=== PATIENT | female | born 1995 | race Caucasian/White ===

== ENCOUNTER 2016-08-19 23:06 | Emergency (ER) | payer OTHER ==
[2016-08-19 23:20] VITALS: BP 122/76; PULSE 88; TEMP 97.6; BMI 36.1
--- NOTE | 2016-08-19 23:34 | PDOC ---
History of Present Illness - General History Source: Patient Exam Limitations: No Limitations - History of Present Illness Initial Comments: 08/20/16 00:09 The patient is a 20 year old female with significant past medical history of asthma and eczema who presents to the ED with several weeks of nonradiating chest/rib cage pain. She states her pain has been intermittent within the past several weeks with no exacerbating or alleviating factors. Denies lightheadedness, diaphoresis, SOB, jaw pain, shoulder pain, arm pain, leg swelling, nausea, or vomiting. She denies trauma to the area, sick contacts, or recent travels. States she has been evaluated recently for her symptoms , where she has been treated with no resolution. The patient denies fever, chills, cough, abdominal pain, and diarrhea. Allergies: amoxicillin Social History: No alcohol, tobacco, or drug use reported. Past Surgical History: None reported PCP: Dr. Carlene Messina <Ev Silva - Last Filed: 08/20/16 00:59> - General History Source: Patient <Earle Russell - Last Filed: 08/20/16 01:03> - General Chief Complaint: Pain Stated Complaint: PAIN Time Seen by Provider: 08/19/16 23:33 Past History <Ev Silva - Last Filed: 08/20/16 00:59> - Past Medical History Asthma: Yes - Immunization History Immunization Up to Date: Yes - Psycho/Social/Smoking Cessation Hx Anxiety: No Suicidal Ideation: No Smoking History: Never smoked Have you smoked in the past 12 months: No Number of Cigarettes Smoked Daily: 0 Cigars Per Day: 0 Information on smoking cessation initiated: No Hx Alcohol Use: No Drug/Substance Use Hx: No Substance Use Type: None <Earle Russell - Last Filed: 08/20/16 01:03> - Past Medical History Allergies/Adverse Reactions: Allergies Allergy/AdvReac Type Severity Reaction Status Date / Time peanut Allergy Severe Verified 08/19/16 23:20 amoxicillin Allergy Verified 08/19/16 23:20 Home Medications: Ambulatory Orders Salmeterol/Fluticasone [Advair 100Mcg/50Mcg -] 1 inh PO BID 12/14/14 Ondansetron [Zofran Odt -] 4 mg SL TID PRN #21 od.tablet 05/19/16 Review of Systems - Review of Systems Able to Perform ROS?: Yes Comments:: 08/20/16 00:09 CONSTITUTIONAL: Absent: fever, no chills, no fatigue EYES: Absent: visual changes ENT: Absent: ear pain, no sore throat CARDIOVASCULAR: +chest/rib cage pain Absent: no palpitations RESPIRATORY: Absent: cough, no SOB GI: Absent: abdominal pain, no nausea, no vomiting, no constipation, no diarrhea GENITOURINARY: Absent: dysuria, no frequency, no hematuria MUSCULOSKELETAL: Absent: back pain SKIN: Absent: rash NEURO: Absent: headache <Ev Silva - Last Filed: 08/20/16 00:59> *Physical Exam - Vital Signs Last Vital Signs Temp Pulse Resp BP Pulse Ox 97.6 F 88 20 122/76 99 08/19/16 23:18 08/19/16 23:18 08/19/16 23:18 08/19/16 23:18 08/19/16 23:18 - Physical Exam Comments: 08/20/16 00:09 GENERAL: Well-appearing, well-nourished. No apparent distress. HEENT: Normocephalic, atraumatic. PERRL, EOM intact. CARDIOVASCULAR: Normal S1, S2. Regular rate and rhythm. PULMONARY: Clear to auscultation bilaterally. ABDOMEN: Obese. Soft, non-distended, non-tender. EXTREMITIES: Normal ROM in all four extremities. No gross deformities. SKIN: Warm, dry. Large pendulous breast, stretch choi underneath each breast, skin under both breast is tender, thin and non-erythematous NEUROLOGICAL: No focal neurological deficits. <Ev Silva - Last Filed: 08/20/16 00:59> - Vital Signs Last Vital Signs Temp Pulse Resp BP Pulse Ox 97.6 F 88 20 122/76 99 08/19/16 23:18 08/19/16 23:18 08/19/16 23:18 08/19/16 23:18 08/19/16 23:18 <Earle Russell - Last Filed: 08/20/16 01:03> ED Treatment Course - RADIOLOGY Radiograph Interpretation: 08/20/16 00:59 Exam: Noncontrast CT chest Reviewed by Imaging internal controls consultant: Findings: No pulmonary infiltrates, nodules or masses are seen. There is no axillary, mediastinal or hilar adenopathy. The heart is within limits for size. There is no pericardial or pleural effusion. The trachea and central bronchi are patent. The thoracic aorta and proximal great vessels have a normal appearance. The visualized upper abdominal viscera appear unremarkable. Impression: No pulmonary infiltrates nodules or masses seen. No other acute abnormality seen in the chest or visualized upper abdomen. <Ev Silva - Last Filed: 08/20/16 00:59> Medical Decision Making - Medical Decision Making 08/20/16 01:02 Dr. Russell: The scribe's documentation has been prepared under my direction and personally reviewed by me in its entirery. I confirm that the note above accurately reflects all work, treatment, procedures, and medical decision making performed by me. Chest ct scan was negative for any thoracic pathology. Pt will be discharged and follow up with her pcp. <Earle Russell - Last Filed: 08/20/16 01:03> *DC/Admit/Observation/Transfer - Attestations Scribe Attestion: 08/20/16 00:10 Documentation prepared by Ev Silva, acting as medical associate for Earle Russell MD <Ev Silva - Last Filed: 08/20/16 00:59> - Discharge Dispostion Admit: No <Earle Rsusell - Last Filed: 08/20/16 01:03> Diagnosis at time of Disposition: Chest pain, muscular - Discharge Dispostion Disposition: HOME Condition at time of disposition: Stable - Referrals Referrals: Carlene Messina MD [Primary Care Provider] - - Patient Instructions Printed Discharge Instructions: DI for Atypical Chest Pain
== END 2016-08-20 01:08 | disposition home or self-care (01) ==
LOC: JER 23:06
DX: R07.89 Other chest pain (principal)
CPT/HCPCS: 71250-TC; 84703; 99281-25

== ENCOUNTER 2017-03-25 18:57 | Emergency (ER) | payer OTHER ==
[2017-03-25 19:21] VITALS: BMI 37.5
--- NOTE | 2017-03-25 19:37 | PDOC ---
History of Present Illness - General Chief Complaint: Chest Pain Stated Complaint: CHEST PAIN Time Seen by Provider: 03/25/17 19:32 - History of Present Illness Initial Comments: 03/25/17 21:26 The patient is a 21 year old female with a history of asthma who presents for evaluation of chest pain. The patient reports a 3 day history of intermittent sharp non-radiating chest pain, worse with movement prompting her presentation to the ED today. She states she has never experience pain like this in the past. She denies any SOB, recent long travel, leg swelling, fevers, chills, cough, abdominal pain, or changes with urination or bowel movements. Past History - Past Medical History Allergies/Adverse Reactions: Allergies Allergy/AdvReac Type Severity Reaction Status Date / Time peanut Allergy Severe Verified 03/25/17 19:38 amoxicillin Allergy Verified 03/25/17 19:38 Home Medications: Ambulatory Orders Albuterol Sulfate Inhaler - [Ventolin HFA Inhaler -] 1 - 2 inh PO Q4H PRN #1 inhaler 03/25/17 Fluticasone/Salmeterol [Advair 250-50 Diskus] 1 each IH DAILY 03/25/17 Ibuprofen 800 mg PO Q6H 03/25/17 Asthma: Yes - Immunization History Immunization Up to Date: Yes - Suicide/Smoking/Psychosocial Hx Smoking History: Never smoked Have you smoked in the past 12 months: No Number of Cigarettes Smoked Daily: 0 Cigars Per Day: 0 Hx Alcohol Use: No Drug/Substance Use Hx: No Substance Use Type: None Review of Systems - Review of Systems Comments:: 03/25/17 21:32 Constitutional: No fevers, chills, fatigue, malaise HEENT: No Rhinorrhea, nasal congestion, Cardiovascular: Chest pain. No syncope, palpitations, lightheadedness Respiratory: No Cough, SOB, Hemoptysis, Gastrointestinal: No Abdominal pain, Nausea, Vomiting, Constipation, Diarrhea, Genitourinary: No Dysuria, Frequency, Urgency, Hesitancy, Hematuria, Flank pain Musculoskeletal: No Myalgia, arthralgia Skin: No rashes, bruising, pallor Neurologic: No Headache, Dizziness, Numbness, Weakness, or Tingling *Physical Exam - Vital Signs Last Vital Signs Temp Pulse Resp BP Pulse Ox 98.4 F 77 20 142/79 100 03/25/17 19:19 03/25/17 19:19 03/25/17 19:19 03/25/17 19:19 03/25/17 19:19 - Physical Exam Comments: 03/25/17 21:32 General Appearance: Nourished. No Apparent Distress HEENT: EOMI, MARISELA. No Pharyngeal Erythema, Tonsillar Exudate, Tonsillar Erythema Respiratory/Chest: Reproducible pain on palpation of left chest. Lungs Clear, Normal Breath Sounds. No Crackles, Rales, Rhonchi, Wheezing Cardiovascular: Regular Rhythm, Regular Rate. No Murmur, Gallops, Rubs Gastrointestinal/Abdominal: Normal Bowel Sounds, Soft. No Guarding, Rebound, Tenderness Musculoskeletal: No CVA Tenderness Extremity: Normal Capillary Refill Integumentary: Normal Color, Dry, Warm Neurologic: Fully Oriented, Alert, Normal Mood/Affect, Normal Response, ED Treatment Course - LABORATORY CBC & Chemistry Diagram: 03/25/17 20:37 03/25/17 20:37 Medical Decision Making - Medical Decision Making 03/25/17 21:36 The patient is a 21 year old female with a history of asthma who presents for evaluation of chest pain. Differential includes but is not limited to: Musculoskeletal, pneumonia, infectious, metabolic derangement. Given the patient's reproducible pain on palpation on exam and symptoms of intermittent chest pain with movement, it is likely her pain is due to musculoskeletal strain. However we will obtain a chest plain film to evaluate for pneumonia or other etiologies as well as a cbc, cmp. We will continue to monitor and reassess. 03/25/17 21:39 cbc, cmp are unremarkable and the patient's chest plain film is unremarkable. EKG does not demonstrate any signs of acute ischemia and is otherwise unremarkable. We are comfortable discharging the patient home at this time. We discussed the results with the patient who voiced understanding and his agreeable with the plan. *DC/Admit/Observation/Transfer Diagnosis at time of Disposition: Chest pain, muscular - Discharge Dispostion Disposition: HOME Condition at time of disposition: Good Admit: No - Prescriptions Prescriptions: Albuterol Sulfate Inhaler - [Ventolin HFA Inhaler -] 1 - 2 inh PO Q4H PRN #1 inhaler PRN Reason: Asthma - Referrals Referrals: Carlene Messina MD [Primary Care Provider] - - Patient Instructions Printed Discharge Instructions: DI for Atypical Chest Pain Additional Instructions: Please return to the ER if you experience concerning or worsening symptoms including fevers, chills, nausea or vomiting. Please call to schedule a follow up appointment with your primary care provider to discuss your ER visit. We have sent a rescue inhaler to your pharmacy to help manage your asthma.
--- NOTE | 2017-03-25 19:38 | PDOC ---
Attending Attestation - Resident Resident Name: Tono Stuart - ED Attending Attestation I have performed the following: I have examined & evaluated the patient, The case was reviewed & discussed with the resident, I agree w/resident's findings & plan, Exceptions are as noted - HPI HPI: 03/25/17 20:11 h/o asthma. c/o cp occasional sob - Physicial Exam PE: 03/25/17 20:12 as*Physical Exam General Appearance: Yes: Appropriately Dressed. No: Apparent Distress, Intoxicated HEENT: positive: EOMI, MARISELA, Normal ENT Inspection, Normal Voice, TMs Normal, Pharynx Normal. negative: Pale Conjunctivae, Photophobia, Scleral Icterus (R), Scleral Icterus (L) Neck: positive: Trachea midline, Normal Thyroid, Supple. negative: Tender, Rigid, Carotid bruit, Stridor, Lymphadenopathy (R), Lymphadenopathy (L), Thyromegaly Respiratory/Chest: positive: Lungs Clear, Normal Breath Sounds. negative: Chest Tender, Respiratory Distress, Accessory Muscle Use, Labored Respiration, RES, Crackles, Rales, Rhonchi, Stridor, Wheezing, Dullness Cardiovascular: positive: Regular Rhythm, Regular Rate, S1, S2. negative: Edema , JVD, Murmur, Bradycardia, Tachycardia Vascular Pulses: Dorsalis-Pedis (R): 2+, Doralis-Pedis (L): 2+ Gastrointestinal/Abdominal: positive: Normal Bowel Sounds, Flat, Soft. negative : Tender, Organomegaly, Pulsatile Mass, Increased Bowel Sounds, Decreased BS, Distended, Guarding, Rebound, Hernia, Hepatomegaly, Spleenomegaly Lymphatic: negative: Adenopathy, Tenderness Musculoskeletal: positive: Normal Inspection. negative: CVA Tenderness, Decreased Range of Motion Extremity: positive: Normal Capillary Refill, Normal Inspection, Normal Range of Motion, Pelvis Stable. negative: Tender, Pedal Edema, Swelling, Erythema Integumentary: positive: Normal Color, Dry, Warm. negative: Cyanotic, Erythema , Jaundice, Rash Neurologic: positive: support specialist II-XII NML intact, Fully Oriented, Alert, Normal Mood/ Affect, Motor Strength 5/5. negative: EOM Palsy, Facial Droop, Sensory Deficit - Medical Decision Making 03/25/17 21:38 Pt labs and chest xray are all negative. Pt to be discharged to follow up with pcp.
[2017-03-25] MEDS ORDERED: ALBUTEROL SO4 2.5/IPRATROPIUM 0.5 INH SOL 3 ML VIAL.NEB. NEB ONE ×2 (20:14→20:23)
[2017-03-25 20:46] LABS: BASOPHIL 1.1 % (0-2.0); MCH 27.3 pg (25.7-33.7); MCHC 32.8 g/dl (32.0-36.0); MEAN CELL VOLUME 83.3 fl (80-96); MEAN PLT VOLUME 8.3 fl (7.5-11.1); NEUTROPHILS 62.5 % (42.8-82.8); PLATELET COUNT 293 K/MM3 (134-434); RDW 14.3 % (11.6-15.6); WHITE BLOOD COUNT 9.3 K/mm3 (4.0-10.0)
[2017-03-25 21:13] LABS: ALBUMIN 3.8 g/dl (3.4-5.0); ANION GAP 8 (8-16); BILIRUBIN,TOTAL 0.4 mg/dL (0.2-1.0); CALCIUM 8.4 mg/dL (8.5-10.1); CO2 24 mmol/L (21-32); CREATININE 0.6 mg/dL (0.55-1.02); GLUCOSE,RANDOM 110 mg/dL (74-106); SGOT/AST 20 U/L (15-37); SGPT/ALT 22 U/L (12-78); TOT PROT 7.3 g/dl (6.4-8.2)
[2017-03-25 21:14] LABS: ALK PHOS 79 U/L (45-117)
[2017-03-25 22:13] VITALS: BP 120/80; PULSE 95; TEMP 98.8
--- NOTE | 2017-03-26 17:23 | EKG ---
Test Reason : Blood Pressure : / mmHG Vent. Rate : 071 BPM Atrial Rate : 071 BPM P-R Int : 222 ms QRS Dur : 078 ms QT Int : 370 ms P-R-T Axes : 017 043 039 degrees QTc Int : 402 ms SINUS RHYTHM WITH MARKED SINUS ARRHYTHMIA WITH 1ST DEGREE A-V BLOCK LOW VOLTAGE QRS BORDERLINE ECG NO PREVIOUS ECGS AVAILABLE Confirmed by HEMANT TORREZ MD ([id number]) on 03/26/2017 5:22:46 PM Referred By: Confirmed By:HEMANT TORREZ MD
== END 2017-03-25 22:17 | disposition home or self-care (01) ==
LOC: JER 18:57
PROC: 3E0F7GC Introduction of Other Therapeutic Substance into Respiratory Tract, Via Natural or Artificial Opening (ICD-10-PCS; principal; 2017-03-25)
DX: R07.89 Other chest pain (principal); Z87.09 Personal history of other diseases of the respiratory system
CPT/HCPCS: 36415; 71020-TC; 80053; 84703; 85025; 93005; 93010; 99283-25

== ENCOUNTER 2017-10-12 23:26 | Emergency (ER) | payer OTHER ==
[2017-10-12 23:58] VITALS: BP 128/63; PULSE 86; TEMP 97.7; BMI 40.0
--- NOTE | 2017-10-13 00:05 | PDOC ---
History of Present Illness - General Chief Complaint: Toothache Stated Complaint: TOOTHACHE (28 WKS ) Time Seen by Provider: 10/12/17 23:55 History Source: Patient Exam Limitations: No Limitations - History of Present Illness Initial Comments: This is a 21 YOF who is (28 weeks ) with h/o asthma and eczema who p/w toothache for the past week, acutely worsened tonight. She notes 10/10 sharp pain radiating from her Past History - Past Medical History Allergies/Adverse Reactions: Allergies Allergy/AdvReac Type Severity Reaction Status Date / Time amoxicillin Allergy Intermediate Hives Verified 10/12/17 23:58 peanut Allergy Intermediate Hives Verified 10/12/17 23:58 Home Medications: Ambulatory Orders Albuterol Sulfate Inhaler - [Ventolin HFA Inhaler -] 1 - 2 inh PO Q4H PRN #1 inhaler 03/25/17 Fluticasone/Salmeterol [Advair 250-50 Diskus] 1 each IH BID 03/25/17 Vitamins (Sjr) - 1 tab PO DAILY 08/25/17 Clindamycin [Cleocin -] 450 mg PO Q8H #21 capsule 10/13/17 Asthma: Yes - Immunization History Immunization Up to Date: Yes - Suicide/Smoking/Psychosocial Hx Smoking History: Never smoked Have you smoked in the past 12 months: No Number of Cigarettes Smoked Daily: 0 Cigars Per Day: 0 Hx Alcohol Use: No Drug/Substance Use Hx: No Substance Use Type: None *DC/Admit/Observation/Transfer Diagnosis at time of Disposition: Dentalgia, Pulpitis, Dental infection - Discharge Dispostion Disposition: HOME Condition at time of disposition: Stable Decision to Admit order: No - Prescriptions Prescriptions: Clindamycin [Cleocin -] 450 mg PO Q8H #21 capsule - Referrals Referrals: ON STAFF,NOT [Non Staff, Medical] - - Patient Instructions Printed Discharge Instructions: DI for Dental Pain Additional Instructions: You were seen in the ER for dental pain. We did a dental nerve block with anesthetic medication which should last up to 8 hours. We also gave you a dose of Tylenol, and of clindamycin which is an antibiotic in case you have a dental infection. We are sending a prescription for the antibiotic to your pharmacy, so please pick it up and take the whole course as prescribed. After our assessment, we do not believe you are having a medical emergency at this time, and we believe you are safe to go home. Please follow up with your regular PCP doctor and your dentist in 1-3 days. Call their clinic as soon as possible, tell them you were seen in the ER, and tell them you need an appointment. If you have any new or worsening symptoms, please come back to the ER at any time ( 24 hours a day). If you are having severe or life threatening symptoms, or symptoms that make it unsafe to drive or have someone drive you, please call 911. - Post Discharge Activity
[2017-10-13] MEDS ORDERED: BUPIVACAINE HCL/PF 0.5% (5MG/ML) 10 ML VIAL IJ ONE (00:30)
[2017-10-13] MEDS ORDERED: CLINDAMYCIN HCL 150 MG CAPSULE (FP) PO ONE (01:41)
[2017-10-13] MEDS ORDERED: ACETAMINOPHEN 325 MG TABLET (FP) PO ONE (01:41)
--- NOTE | 2017-10-13 01:43 | PDOC ---
Attending Attestation - HPI HPI: 10/13/17 01:46 The patient is a 21 year old female, , 28 wks , with past medical history of asthma and eczema presents to the emergency with Right mandibular molar tooth ache. Allergies: amoxicillin and peanuts PCP: Dr. Carlene Messina Social history: None reported Surgical history: None - Physicial Exam PE: 10/13/17 01:47 GENERAL: Well-appearing, well-nourished. No apparent distress. HEENT: Normocephalic, atraumatic. PERRL, EOM intact. ORAL: Grossly carrier #30. No jorden's angina. No submandibular or sublingual swelling. No abcess. Patient is handling her own spit. CARDIOVASCULAR: Normal S1, S2. Regular rate and rhythm. PULMONARY: No difficulty with her airway Clear to auscultation bilaterally. ABDOMEN: Soft, non-distended, non-tender. EXTREMITIES: Normal ROM in all four extremities. No gross deformities. SKIN: Warm, dry. No rash NEUROLOGICAL: AAOX3, speaking clearly and easily w/ full sentences. Patient is Ambulatory No focal neurological deficits. - Medical Decision Making 10/13/17 01:48 Documentation prepared by Carlee Gregg, acting as medical review coordinator for Kylie Goldman MD. <Carlee Gregg - Last Filed: 10/13/17 01:46> - Resident Resident Name: Ame Woodard - ED Attending Attestation I have performed the following: I have examined & evaluated the patient, The case was reviewed & discussed with the resident, I agree w/resident's findings & plan, Exceptions are as noted - HPI HPI: 10/13/17 01:41 21-year-old female who is 28 weeks presents with a toothache. No signs of the lids angina. An inferior alveolar dental nerve block was done with Marcaine - Medical Decision Making 10/13/17 01:56 pt's pain resolved after dental block -RX for clinda will be started pt to follow up with her dentist <Kylie Goldman - Last Filed: 10/13/17 01:57>
[2017-10-13] MEDS ORDERED: CLINDAMYCIN HCL 150 MG CAPSULE (FP) ONE (02:07)
[2017-10-13] MEDS ORDERED: ACETAMINOPHEN 325 MG TABLET (FP) ONE (02:07)
== END 2017-10-13 02:13 | disposition home or self-care (01) ==
LOC: SUPCPDRO 23:26 → JER 23:26
PROC: 3E013BZ Introduction of Anesthetic Agent into Subcutaneous Tissue, Percutaneous Approach (ICD-10-PCS; principal; 2017-10-12)
DX: O99.89 Other specified diseases and conditions complicating pregnancy, childbirth and the puerperium (principal); K04.7 Periapical abscess without sinus; Z3A.28 28 weeks gestation of pregnancy
CPT/HCPCS: 99281-25

== ENCOUNTER 2017-12-26 17:20 | Inpatient (IN) | payer OTHER ==
[~2017-12-26 17:20] MED LIST: DEXTROSE 5%-LACTATED RINGERS 1,000 ML IV SCH
[2017-12-26 18:08] VITALS: BMI 40.6
[2017-12-26 18:53] LABS: BASO % 0.2 % (0-2.0); EOS % 0.7 % (0-4.5); HEMATOCRIT 34.3 % (32.4-45.2); HEMOGLOBIN 11.3 GM/dL (10.7-15.3); LYMPH % 14.6 % (8-40); MCH 27.9 pg (25.7-33.7); MCHC 32.9 g/dl (32.0-36.0); MEAN CELL VOLUME 84.9 fl (80-96); MEAN PLT VOLUME 9.5 fl (7.5-11.1); MONO % 8.5 % (3.8-10.2); PLATELET COUNT 229 K/MM3 (134-434); RBC 4.04 M/mm3 (3.60-5.2); RDW 15.1 % (11.6-15.6); WHITE BLOOD COUNT 9.7 K/mm3 (4.0-10.0)
[2017-12-26 19:09] LABS: INR 1.07 (0.82-1.09); PROTHROMBIN TIME (PATIENT) 12.1 SEC (9.7-13.0)
[2017-12-26 19:12] LABS: ACTIVATED PTT 24.3 SECONDS (25.2-36.5)
[2017-12-26 19:31] LABS: ANION GAP 7 (8-16); BLOOD UREA NITROGEN 7 mg/dL (7-18); CALCIUM 8.7 mg/dL (8.5-10.1); CHLORIDE 110 mmol/L (98-107); CO2 25 mmol/L (21-32); CREATININE 0.5 mg/dL (0.55-1.02); POTASSIUM 4.3 mmol/L (3.5-5.1); SODIUM 142 mmol/L (136-145)
[2017-12-26 19:38] LABS: GLUCOSE,RANDOM 40 mg/dL (74-106)
--- NOTE | 2017-12-26 20:24 | HP ---
Past Medical History - Admission Chief Complaint: 39 weeks gestation History of Present Illness: 22 yo , @ 39 weeks gestation, EDC 01/02/18, admitted for induction of labor. She has been suffering for a toothache that needs to be pulled. Decision made for Cervidil induction. History Source: Patient Limitations to Obtaining History: No Limitations - Past Medical History ...: 1 ...Para: 0 ...LMP: 04/03/18 ... Weeks Gestation by Dates: 38.3 ...EDC by Dates: 01/06/18 ...EDC by Sono: 01/02/18 - Past Surgical History Past Surgical History: Yes: None Hx Myomectomy: No Hx Transabdominal Cerclage: No - Smoking History Smoking history: Never smoked Have you smoked in the past 12 months: No Aproximately how many cigarettes per day: 0 - Alcohol/Substance Use Hx Alcohol Use: No History of Substance Use: reports: None - Social History History of Recent Travel: No Home Medications - Allergies Allergies/Adverse Reactions: Allergies Allergy/AdvReac Type Severity Reaction Status Date / Time amoxicillin Allergy Intermediate Hives Verified 12/26/17 18:11 peanut Allergy Intermediate Hives Verified 12/26/17 18:11 - Home Medications Home Medications: Ambulatory Orders Albuterol Sulfate Inhaler - [Ventolin HFA Inhaler -] 1 - 2 inh PO Q4H PRN #1 inhaler 03/25/17 Fluticasone/Salmeterol [Advair 250-50 Diskus] 1 each IH BID 03/25/17 Vitamins (Sjr) - 1 tab PO DAILY 08/25/17 Family Disease History - Family Disease History Family History: Unremarkable Review of Systems - Review of Systems Constitutional: reports: No Symptoms Eyes: reports: No Symptoms HENT: reports: No Symptoms Neck: reports: No Symptoms Cardiovascular: reports: No Symptoms Respiratory: reports: No Symptoms Gastrointestinal: reports: No Symptoms Genitourinary: reports: No Symptoms Breasts: reports: No Symptoms Reported Musculoskeletal: reports: No Symptoms Integumentary: reports: No Symptoms Neurological: reports: No Symptoms Endocrine: reports: No Symptoms Hematology/Lymphatic: reports: No Symptoms Psychiatric: reports: No Symptoms Pain Intensity: 1 Physical Exam - Maternity Vital Signs: Vital Signs Temperature 97.8 F 12/26/17 20:00 Pulse Rate 76 12/26/17 20:00 Respiratory Rate 20 12/26/17 20:00 Blood Pressure 132/72 12/26/17 20:00 O2 Sat by Pulse Oximetry (%) Constitutional: Yes: Well Nourished Eyes: Yes: Conjunctiva Clear HENT: Yes: Atraumatic Neck: Yes: Supple Cardiovascular: Yes: Regular Rate and Rhythm Lungs: Clear to auscultation - Abdominal Exam/OB Number of Fetuses: Single Presentation: Vertex Intensity: Unaware - Physical Exam ...Motor Strength: WNL Psychiatric: Yes: Alert, Oriented - Labs Lab Results: CBC, BMP 12/26/17 18:34 12/26/17 18:34 Problem List - Problems (1) 39 weeks gestation of Code(s): Z3A.39 - 39 WEEKS GESTATION OF Assessment/Plan 39 weeks gestation Toothache Suspicion of macrosomia Admit for Cervidil induction.
[2017-12-26] MEDS: DEXTROSE 5%-LACTATED RINGERS 1,000 ML IV SCH (20:30)
[2017-12-26] MEDS ORDERED: DINOPROSTONE 10 MG VAGINAL SUPPOSITORY VG ONE (20:30)
[2017-12-27] MEDS ORDERED: OXYTOCIN 20 UNITS in 0.9% NS 20 UNIT/1,000 ML INFUS.BAG IV ONE ×2 (10:39→17:52)
--- NOTE | 2017-12-27 10:44 | PN ---
Progress Note (short form) - Note Progress Note: Patient seen and evaluated. She c/o moderate discomfort. FHR : Reassuring [place] : + regular contractions VE : 260/-2 A/P : Status post cervidil induction Start Pitocin Analgesia as needed Problem List - Problems (1) 39 weeks gestation of Code(s): Z3A.39 - 39 WEEKS GESTATION OF
[2017-12-27] MEDS ORDERED: PROMETHAZINE HCL 25 MG/1 ML VIAL IVPUSH PRN (10:45)
[2017-12-27] MEDS ORDERED: BUTORPHANOL TARTRATE 1 MG/ML VIAL IVPUSH PRN (10:45)
[2017-12-27] MEDS: ELECTROLYTE-148 SOLN 1,000 ML IV SCH (11:00)
[2017-12-27] MEDS: OXYTOCIN 30 UNITS in 0.9% NS 30 UNIT/500 ML INFUS.BAG IVPB SCH (11:00)
[2017-12-27] MEDS ORDERED: BUTORPHANOL TARTRATE 1 MG/ML VIAL ONE ×2 (11:02)
[2017-12-27] MEDS ORDERED: PROMETHAZINE HCL 25 MG/1 ML VIAL ONE (11:02)
[2017-12-27] MEDS ORDERED: FENTANYL/BUPIVACAINE/NS/PF - PCEA - 50 ML DISP.SYRIN EP ONE ×3 (14:47→19:01)
[2017-12-27] MEDS ORDERED: BUPIVACAINE HCL/PF 0.25% (2.5MG/ML) 10 ML VIAL ONE ×2 (14:58→17:32)
[2017-12-27] MEDS: FENTANYL/BUPIVACAINE/NS/PF - PCEA - 50 ML DISP.SYRIN EP SCH (15:15)
[2017-12-27] MEDS ORDERED: NALOXONE HCL 0.4 MG/ML VIAL IVPUSH PRN (15:33)
[2017-12-27] MEDS ORDERED: LIDOCAINE HCL 1% PRESERVATIVE FREE - 30ML VIAL ONE (17:58)
[2017-12-27] MEDS ORDERED: METHYLERGONOVINE MALEATE 0.2 MG/1 ML AMP IM PRN (19:23)
[2017-12-27] MEDS ORDERED: BENZOCAINE 20% 57 GM BOTTLE TP PRN (19:23)
[2017-12-27] MEDS ORDERED: WITCH HAZEL 50% (TUCKS) 40 PAD/JAR PAD TP PRN (19:23)
[2017-12-27] MEDS ORDERED: BISACODYL 10 MG SUPP.RECT RC PRN (19:23)
[2017-12-27] MEDS ORDERED: BENZOCAINE 28 GM HEMORRHOIDAL OINTMENT TP PRN (19:23)
[2017-12-27] MEDS ORDERED: OXYTOCIN 20 UNITS in 0.9% NS 20 UNIT/1,000 ML INFUS.BAG IV SCH (19:30)
--- NOTE | 2017-12-27 19:31 | PN ---
Delivery - Delivery Vaginal Delivery: Spontaneous Type of Anesthesia: Epidural Episiotomy/Laceration: Midline EBL (cc): 300 Delivery, Single - Feeding Plan Initial Plan: Elected not to breastfeed exclusively throughout hospitalization Remarks - Remarks Remarks: Normal spontaneous vaginal delivery of a live infant girl over midline episiotomy. Nose / Oropharynx suctioned @ perineum. Cord clamped and cut. Placenta expelled spontaneously intact. Midline episiotomy repaired with 2.0 Chromic. Mother in stable condition.
[2017-12-27] MEDS: FERROUS SO4 325 MG TABLET (FP) PO SCH (22:53)
[2017-12-28 07:36] LABS: BASO % 0.2 % (0-2.0); EOS % 0.4 % (0-4.5); HEMOGLOBIN 9.8 GM/dL (10.7-15.3); LYMPH % 13.9 % (8-40); MCH 28.3 pg (25.7-33.7); MCHC 32.7 g/dl (32.0-36.0); MEAN CELL VOLUME 86.5 fl (80-96); MEAN PLT VOLUME 9.4 fl (7.5-11.1); MONO % 9.2 % (3.8-10.2); NEUT % 76.3 % (42.8-82.8); PLATELET COUNT 192 K/MM3 (134-434); RBC 3.47 M/mm3 (3.60-5.2); RDW 15.1 % (11.6-15.6); WHITE BLOOD COUNT 14.3 K/mm3 (4.0-10.0)
[2017-12-28] MEDS: FERROUS SO4 325 MG TABLET (FP) PO SCH ×2 (09:29→21:13)
[2017-12-28] MEDS: PRENATAL VITAMINS W/ FOLIC ACID TABLET (FP) PO SCH (09:29)
[2017-12-28] MEDS: IBUPROFEN 600 MG TABLET (FP) PO PRN (10:45)
[2017-12-28] MEDS: ACETAMINOPHEN 325 MG TABLET (FP) PO PRN (10:46)
--- NOTE | 2017-12-28 15:38 | PN ---
Post Progress Note - Subjective Subjective: 22 yo Para 1 status post vaginal delivery, seen and evaluated. Doing well. Post Day: 1 Type of Delivery: Vital Signs: Vital Signs Temperature 97.8 F 12/28/17 14:10 Pulse Rate 81 12/28/17 14:10 Respiratory Rate 20 12/28/17 14:10 Blood Pressure 129/63 12/28/17 14:10 O2 Sat by Pulse Oximetry (%) 100 12/27/17 20:30 Breast Exam: Yes: Soft Uterus: Yes: Fundus Firm Abdomen/GI: Yes: Abdomen soft, Other Lochia: Yes: Rubra Lochia, amount: Moderate Extremities: Yes: Calves non-tender Perineum: Yes: Episiotomy (healing) Activity: Ambulating - Labs Labs: CBC WBC 14.3 K/mm3 (4.0-10.0) H 12/28/17 07:00 RBC 3.47 M/mm3 (3.60-5.2) L 12/28/17 07:00 Hgb 9.8 GM/dL (10.7-15.3) L 12/28/17 07:00 Hct 30.0 % (32.4-45.2) L 12/28/17 07:00 MCV 86.5 fl (80-96) 12/28/17 07:00 MCH 28.3 pg (25.7-33.7) 12/28/17 07:00 MCHC 32.7 g/dl (32.0-36.0) 12/28/17 07:00 RDW 15.1 % (11.6-15.6) 12/28/17 07:00 Plt Count 192 K/MM3 (134-434) 12/28/17 07:00 MPV 9.4 fl (7.5-11.1) 12/28/17 07:00 Absolute Neuts (auto) 10.9 # 12/28/17 07:00 Neutrophils % 76.3 % (42.8-82.8) 12/28/17 07:00 Lymphocytes % 13.9 % (8-40) 12/28/17 07:00 Monocytes % 9.2 % (3.8-10.2) 12/28/17 07:00 Eosinophils % 0.4 % (0-4.5) 12/28/17 07:00 Basophils % 0.2 % (0-2.0) 12/28/17 07:00 Nucleated RBC % 0 % (0-0) 12/28/17 07:00 Problem List - Problems (1) 39 weeks gestation of Code(s): Z3A.39 - 39 WEEKS GESTATION OF (2) Status post normal vaginal delivery Code(s): NWG8069 - Assessment/Plan Status post vaginal delivery. Stable Continue routine care
[2017-12-28] MEDS ORDERED: SENNOSIDES/DOCUSATE COMBO (SENNA PLUS) TABLET (UD) PO PRN (22:00)
[2017-12-28 23:26] VITALS: TEMP 97.8
[2017-12-29] MEDS: IBUPROFEN 600 MG TABLET (FP) PO PRN (05:57)
[2017-12-29] MEDS: ACETAMINOPHEN 325 MG TABLET (FP) PO PRN (05:57)
--- NOTE | 2017-12-29 07:57 | DS ---
Physical Exam-DIRECTOR OF CLINICAL TRIALS Vital Signs: Vital Signs Temperature 97.8 F 12/28/17 23:00 Pulse Rate 67 12/28/17 23:00 Respiratory Rate 20 12/28/17 23:00 Blood Pressure 128/52 12/28/17 23:00 O2 Sat by Pulse Oximetry (%) 100 12/27/17 20:30 Constitutional: Yes: Well Nourished Eyes: Yes: Conjunctiva Clear HENT: Yes: Atraumatic Neck: Yes: Supple Cardiovascular: Yes: Regular Rate and Rhythm Respiratory: Yes: Regular Gastrointestinal: Yes: Normal Bowel Sounds Pelvis: Yes: WNL External Genitalia: Yes: Normal Vaginal Exam: Yes: Normal Cervix: Yes: Normal Uterus: Yes: Firm ....Post : Yes: Uterus firm Breast(s): Yes: WNL Musculoskeletal: Yes: WNL Extremities: Yes: WNL Integumentary: Yes: WNL Neurological: Yes: Alert, Oriented ...Motor Strength: WNL Psychiatric: Yes: Alert, Oriented Labs: CBC, BMP 12/28/17 07:00 12/26/17 18:34 Delivery - Delivery Vaginal Delivery: Spontaneous Type of Anesthesia: Epidural Episiotomy/Laceration: Midline EBL (cc): 300 Delivery, Single - Stages of Labor Date 1st Stage Initiatied: 12/27/17 Time 1st Stage Initiated: 10:30 Date 2nd Stage Initiated: 12/27/17 Time 2nd Stage Initiated: 18:45 Date of Delivery: 12/27/17 Time of Delivery: 19:07 Time Placenta Delivered: 19:10 - Condition of Infant Pensions Retirement Plan Specialist/Rap Artist Present: No Gender: Female Weight: 5 lb 12 oz Position: Right, OA Total Hours ROM (Hrs/Mins): 3Hrs/20Min - 1 Minute Total Score: 9 5 Minutes Total Score: 9 - Feeding Plan Initial Plan: Elected not to breastfeed exclusively throughout hospitalization Discharge Summary Reason For Visit: INDUCTION OF LABOR Current Active Problems 39 weeks gestation of (Acute) Status post normal vaginal delivery (Acute) Procedures: Principal: Normal spontaneous vaginal delivery Hospital Course: Routine care Condition: Good - Instructions Diet, Activity, Other Instructions: Regular diet No douching, no sexual intercourse x 6 weeks F/U in office in 6 weeks Disposition: HOME - Home Medications Comprehensive Discharge Medication List: Ambulatory Orders Albuterol Sulfate Inhaler - [Ventolin HFA Inhaler -] 1 - 2 inh PO Q4H PRN #1 inhaler 03/25/17 Fluticasone/Salmeterol [Advair 250-50 Diskus] 1 each IH BID 03/25/17 Vitamins (Sjr) - 1 tab PO DAILY 08/25/17
[2017-12-29] MEDS: OXYTOCIN 30 UNITS in 0.9% NS 30 UNIT/500 ML INFUS.BAG IVPB SCH (08:50)
[2017-12-29] MEDS: DEXTROSE 5%-LACTATED RINGERS 1,000 ML IV SCH (08:50)
[2017-12-29] MEDS: ELECTROLYTE-148 SOLN 1,000 ML IV SCH (08:50)
[2017-12-29] MEDS: FENTANYL/BUPIVACAINE/NS/PF - PCEA - 50 ML DISP.SYRIN EP SCH (08:51)
[2017-12-29 09:32] VITALS: BP 132/66; PULSE 59
[2017-12-29] MEDS: FERROUS SO4 325 MG TABLET (FP) PO SCH (09:51)
[2017-12-29] MEDS: PRENATAL VITAMINS W/ FOLIC ACID TABLET (FP) PO SCH (09:51)
== END 2017-12-29 11:10 | disposition home or self-care (01) | DRG 775 ==
LOC: JLDR 17:20 → J3W 12-27 20:55
PROVIDERS: ADMIT Obstetrics & Gynecology; ATTEND Obstetrics & Gynecology
PROC: 3E0P7VZ Introduction of Hormone into Female Reproductive, Via Natural or Artificial Opening (ICD-10-PCS; 2017-12-26)
PROC: 10E0XZZ Delivery of Products of Conception, External Approach (ICD-10-PCS; principal; 2017-12-27)
PROC: 0W8NXZZ Division of Female Perineum, External Approach (ICD-10-PCS; 2017-12-27)
DX: O80 Encounter for full-term uncomplicated delivery (principal); Z3A.39 39 weeks gestation of pregnancy; Z37.0 Single live birth
CPT/HCPCS: 36415; 59409; 80048; 85025; 85610; 85730; 86593; 86850; 86900; 86901

== ENCOUNTER 2018-08-02 14:13 | Emergency (ER) | payer OTHER ==
[2018-08-02 14:28] VITALS: BP 129/84; PULSE 90; TEMP 98.4; BMI 45.7
--- NOTE | 2018-08-02 14:30 | PDOC ---
Rapid Medical Evaluation Chief Complaint: Nausea/Vomiting Time Seen by Provider: 08/02/18 14:26 Medical Evaluation: Allergies Allergy/AdvReac Type Severity Reaction Status Date / Time amoxicillin Allergy Intermediate Hives Verified 08/02/18 14:24 peanut Allergy Intermediate Hives Verified 08/02/18 14:24 08/02/18 14:26 I have performed a brief in-person evaluation of this patient. The patient presents with a chief complaint of: abd pain with n/v and body aches x1 day Pertinent physical exam findings: epigastric tenderness I have ordered the following: labs, urine The patient will proceed to the ED for further evaluation. Discharge Disposition - Diagnosis Epigastric abdominal pain - Referrals - Patient Instructions - Post Discharge Activity
[2018-08-02] MEDS ORDERED: ONDANSETRON 4 MG/2 ML VIAL IVPUSH ONE (14:41)
[2018-08-02] MEDS ORDERED: SODIUM CHLORIDE 1,000 ML IV STA (14:41)
[2018-08-02] MEDS ORDERED: ONDANSETRON 4 MG/2 ML VIAL ONE (14:47)
[2018-08-02 15:13] LABS: BASO % 0.3 % (0-2.0); HEMATOCRIT 40.8 % (32.4-45.2); HEMOGLOBIN 13.3 GM/dL (10.7-15.3); MCH 26.6 pg (25.7-33.7); MCHC 32.5 g/dl (32.0-36.0); MEAN CELL VOLUME 81.7 fl (80-96); MEAN PLT VOLUME 8.6 fl (7.5-11.1); MONO % 5.3 % (3.8-10.2); NEUT % 85.4 % (42.8-82.8); PLATELET COUNT 310 K/MM3 (134-434); RBC 4.99 M/mm3 (3.60-5.2); RDW 15.9 % (11.6-15.6); WHITE BLOOD COUNT 9.2 K/mm3 (4.0-10.0)
[2018-08-02 15:16] LABS: ALBUMIN 3.7 g/dl (3.4-5.0); ALK PHOS 103 U/L (45-117); ANION GAP 7 MMOL/L (8-16); BILIRUBIN,TOTAL 0.4 mg/dL (0.2-1); BLOOD UREA NITROGEN 9 mg/dL (7-18); CALCIUM 8.8 mg/dL (8.5-10.1); CHLORIDE 101 mmol/L (98-107); CO2 27 mmol/L (21-32); CREATININE 0.7 mg/dL (0.55-1.3); GLUCOSE,RANDOM 83 mg/dL (74-106); LIPASE 129 U/L (73-393); POTASSIUM 4.2 mmol/L (3.5-5.1); SGOT/AST 16 U/L (15-37); SGPT/ALT 26 U/L (13-61); SODIUM 135 mmol/L (136-145); TOT PROT 7.9 g/dl (6.4-8.2)
[2018-08-02] MEDS ORDERED: predniSONE 20 MG TABLET (UD) PO ONE (15:40)
--- NOTE | 2018-08-02 15:40 | PDOC ---
History of Present Illness - General Chief Complaint: Nausea/Vomiting Stated Complaint: BODYACHE Time Seen by Provider: 08/02/18 14:26 History Source: Patient Past History - Past Medical History Allergies/Adverse Reactions: Allergies Allergy/AdvReac Type Severity Reaction Status Date / Time amoxicillin Allergy Intermediate Hives Verified 08/02/18 14:24 peanut Allergy Intermediate Hives Verified 08/02/18 14:24 Home Medications: Ambulatory Orders Albuterol Sulfate Inhaler - [Ventolin HFA Inhaler -] 1 - 2 inh PO Q4H PRN #1 inhaler 03/25/17 Fluticasone/Salmeterol [Advair 250-50 Diskus] 1 each IH BID 03/25/17 Vitamins (Sjr) - 1 tab PO DAILY 08/25/17 Nitrofurantoin Monohyd/M-Cryst [Macrobid -] 100 mg PO BID #14 capsule 08/02/18 Prednisone [Deltasone] 20 mg PO DAILY #8 tablet 08/02/18 Asthma: Yes Cancer: No Cardiac Disorders: No COPD: No Diabetes: No HTN: No Seizures: No Thyroid Disease: No - Immunization History Immunization Up to Date: Yes - Suicide/Smoking/Psychosocial Hx Smoking History: Never smoked Have you smoked in the past 12 months: No Number of Cigarettes Smoked Daily: 0 Cigars Per Day: 0 Information on smoking cessation initiated: No Hx Alcohol Use: No Drug/Substance Use Hx: No Substance Use Type: None Hx Substance Use Treatment: No Review of Systems - Review of Systems Constitutional: Yes: Malaise. No: Chills, Fever HEENTM: Yes: Nose Congestion. No: Throat Pain Respiratory: Yes: Cough, Shortness of Breath, Wheezing Cardiac (ROS): No: Chest Pain ABD/GI: Yes: Nausea, Vomiting. No: Diarrhea, Abdominal cramping : No: Dysuria *Physical Exam - Vital Signs Last Vital Signs Temp Pulse Resp BP Pulse Ox 98.4 F 90 16 129/84 100 08/02/18 14:24 08/02/18 14:24 08/02/18 14:24 08/02/18 14:24 08/02/18 14:24 - Physical Exam General Appearance: Yes: Appropriately Dressed. No: Apparent Distress HEENT: positive: Normal Voice Neck: positive: Supple Respiratory/Chest: positive: Lungs Clear, Normal Breath Sounds. negative: Respiratory Distress Cardiovascular: positive: Regular Rate, S1, S2 Gastrointestinal/Abdominal: positive: Soft. negative: Tender Integumentary: positive: Dry, Warm Neurologic: positive: Fully Oriented, Alert, Normal Mood/Affect Moderate Sedation - Procedure Monitoring Vital Signs: Procedure Monitoring Vital Signs Temperature 98.4 F 08/02/18 14:24 Pulse Rate 90 08/02/18 14:24 Respiratory Rate 16 08/02/18 14:24 Blood Pressure 129/84 08/02/18 14:24 O2 Sat by Pulse Oximetry (%) 100 08/02/18 14:24 ED Treatment Course - LABORATORY CBC & Chemistry Diagram: 08/02/18 14:41 08/02/18 14:41 - ADDITIONAL ORDERS Additional order review: Laboratory Results 08/02/18 14:41 Sodium 135 L Potassium 4.2 Chloride 101 Carbon Dioxide 27 Anion Gap 7 L BUN 9 Creatinine 0.7 Creat Clearance w eGFR > 60 Random Glucose 83 Calcium 8.8 Total Bilirubin 0.4 AST 16 ALT 26 Alkaline Phosphatase 103 Total Protein 7.9 Albumin 3.7 Lipase 129 08/02/18 14:41 RBC 4.99 MCV 81.7 MCHC 32.5 RDW 15.9 H MPV 8.6 Neutrophils % 85.4 H Lymphocytes % 7.0 L D Monocytes % 5.3 Eosinophils % 2.0 D Basophils % 0.3 - Medications Given in the ED: ED Medications Discontinued Medications Generic Name Dose Route Start Last Admin Trade Name Freq PRN Reason Stop Dose Admin Ondansetron HCl 4 mg 08/02/18 14:41 08/02/18 14:50 Zofran Injection IVPUSH 08/02/18 14:42 4 mg ONCE ONE Administration Medical Decision Making - Medical Decision Making 08/02/18 15:35 22 yo F, h/o asthma, here with malaise with body aches, nausea, vomiting and headache since this a.m. Had some shortness of breath with wheezing at home this am, similar to her asthma, that improved with her nebulizer. Denies dizziness, photophobia, neck pain, rash, abdominal pain, diarrhea or dysuria. No known sick contacts or recent travel. See exam Viral syndrome Labs/ekg ordered at triage for unclear reasons but neg on my review -flu swab pending -tylenol -nebs/pred for mild sob in ED, no wheezing on auscultation -anticipate discharge w/ supportive tx 08/02/18 17:47 Labs only remarkable for +UTI. Pt denies dysuria and no flank pain or CVAT on exam. Will dc w/ abx (ucx sent, no prior sen on records here). Pt improved with meds with clear lungs on reassessment. Able to ambulate without shortness of breath. Will dc with supportive treatment for most likely viral syndrome. 08/02/18 18:02 *DC/Admit/Observation/Transfer Diagnosis at time of Disposition: Viral syndrome UTI (urinary tract infection) Qualifiers: Urinary tract infection type: site unspecified Hematuria presence: without hematuria Qualified Code(s): N39.0 - Urinary tract infection, site not specified - Discharge Dispostion Disposition: HOME Condition at time of disposition: Improved - Prescriptions Prescriptions: Nitrofurantoin Monohyd/M-Cryst [Macrobid -] 100 mg PO BID #14 capsule Prednisone [Deltasone] 20 mg PO DAILY #8 tablet - Referrals Referrals: Carlene Messina MD [Primary Care Provider] - - Patient Instructions Printed Discharge Instructions: DI for Urinary Tract Infection (UTI), DI for Viral Syndrome Additional Instructions: The cause of your symptoms are most likely viral. Your flu test was negative. Rest, drink plenty of fluids and take Tylenol as needed for pain and/or fever. Take prednisone as directed for further improvement of your asthma Your urine shows an infection and we have sent prescription for Macrobid to your pharmacy. Please take as directed. If symptoms worsen, please return to the ER - Post Discharge Activity Forms/Work/School Notes: Back to Work
[2018-08-02] MEDS: ALBUTEROL SO4 2.5/IPRATROPIUM 0.5 INH SOL 3 ML VIAL.NEB. NEB SCH ×4 (15:46→16:30)
[2018-08-02] MEDS ORDERED: ACETAMINOPHEN 325 MG TABLET (FP) PO ONE (15:48)
[2018-08-02] MEDS ORDERED: predniSONE 20 MG TABLET (UD) ONE (15:49)
[2018-08-02] MEDS ORDERED: ALBUTEROL SO4 2.5/IPRATROPIUM 0.5 INH SOL 3 ML VIAL.NEB. NEB ONE (15:49)
[2018-08-02] MEDS ORDERED: ACETAMINOPHEN 325 MG TABLET (FP) ONE (15:58)
--- NOTE | 2018-08-02 16:02 | PDOC ---
*Physical Exam - Vital Signs Last Vital Signs Temp Pulse Resp BP Pulse Ox 98.4 F 90 16 129/84 100 08/02/18 14:24 08/02/18 14:24 08/02/18 14:24 08/02/18 14:24 08/02/18 14:24 ED Treatment Course - LABORATORY CBC & Chemistry Diagram: 08/02/18 14:41 08/02/18 14:41 - ADDITIONAL ORDERS Additional order review: Laboratory Results 08/02/18 14:41 Sodium 135 L Potassium 4.2 Chloride 101 Carbon Dioxide 27 Anion Gap 7 L BUN 9 Creatinine 0.7 Creat Clearance w eGFR > 60 Random Glucose 83 Calcium 8.8 Total Bilirubin 0.4 AST 16 ALT 26 Alkaline Phosphatase 103 Total Protein 7.9 Albumin 3.7 Lipase 129 08/02/18 14:41 RBC 4.99 MCV 81.7 MCHC 32.5 RDW 15.9 H MPV 8.6 Neutrophils % 85.4 H Lymphocytes % 7.0 L D Monocytes % 5.3 Eosinophils % 2.0 D Basophils % 0.3 - Medications Given in the ED: ED Medications Discontinued Medications Generic Name Dose Route Start Last Admin Trade Name Freq PRN Reason Stop Dose Admin Acetaminophen 650 mg 08/02/18 15:48 08/02/18 15:58 Tylenol - PO 08/02/18 15:49 650 mg ONCE ONE Administration Sodium Chloride 1,000 mls @ 1,000 mls/hr 08/02/18 14:41 08/02/18 15:02 Normal Saline - IV 08/02/18 15:40 1,000 mls/hr ASDIR STA Administration Ondansetron HCl 4 mg 08/02/18 14:41 08/02/18 14:50 Zofran Injection IVPUSH 08/02/18 14:42 4 mg ONCE ONE Administration Prednisone 60 mg 08/02/18 15:40 08/02/18 15:56 Deltasone - PO 08/02/18 15:41 60 mg ONCE ONE Administration Medical Decision Making - Medical Decision Making 08/02/18 16:02 Pt seen by the Advanced Practice Provider under my direct supervision Ancillary studies reviewed I agree with plan as outlined by the Advanced Practice Provider GARO Talavera *DC/Admit/Observation/Transfer Diagnosis at time of Disposition: Viral syndrome - Referrals Referrals: Carlene Messina MD [Primary Care Provider] - - Patient Instructions - Post Discharge Activity
[2018-08-02 17:33] LABS: URINE APPEARANCE SLCLOUDY; URINE BILIRUBIN NEGATIVE (<2.0 mg/dL); URINE COLOR YELLOW; URINE GLUCOSE (UA) NEGATIVE (NEGATIVE); URINE KETONE NEGATIVE (NEGATIVE); URINE LEUK ESTERASE NEGATIVE (NEGATIVE); URINE NITRITE POSITIVE (NEGATIVE); URINE PROTEIN NEGATIVE (NEGATIVE); URINE UROBILINOGEN NEGATIVE mg/dL (0.2-1.0)
[2018-08-02 17:52] LABS: EPI CELLS FEW /HPF (FEW); URINE BACTERIA RARE /hpf (NONE SEEN); URINE MUCUS MODERATE
--- NOTE | 2018-08-03 13:57 | EKG ---
Test Reason : Blood Pressure : / mmHG Vent. Rate : 076 BPM Atrial Rate : 076 BPM P-R Int : 186 ms QRS Dur : 082 ms QT Int : 356 ms P-R-T Axes : 010 050 030 degrees QTc Int : 400 ms NORMAL SINUS RHYTHM CANNOT RULE OUT ANTERIOR INFARCT , AGE UNDETERMINED ABNORMAL ECG WHEN COMPARED WITH ECG OF 25-MAR-2017 19:08, [place] INTERVAL HAS DECREASED NONSPECIFIC T WAVE ABNORMALITY, WORSE IN ANTERIOR LEADS Confirmed by MD Asif, Tono ([id number]) on 08/03/2018 1:57:14 PM Referred By: Confirmed By:Tono Gold MD
== END 2018-08-02 18:10 | disposition home or self-care (01) ==
LOC: JER 14:13 → JERFT 14:13 → JER 18:10
PROC: 3E0F7GC Introduction of Other Therapeutic Substance into Respiratory Tract, Via Natural or Artificial Opening (ICD-10-PCS; principal; 2018-08-02)
PROC: 3E0337Z Introduction of Electrolytic and Water Balance Substance into Peripheral Vein, Percutaneous Approach (ICD-10-PCS; 2018-08-02)
PROC: 3E033GC Introduction of Other Therapeutic Substance into Peripheral Vein, Percutaneous Approach (ICD-10-PCS; 2018-08-02)
DX: N39.0 Urinary tract infection, site not specified (principal); B34.9 Viral infection, unspecified
CPT/HCPCS: 36415; 80053; 81003; 81015; 83690; 84703; 85025; 87086; 87186; 87804; 93005; 93010; 99283-25; J7030

== ENCOUNTER 2019-06-12 09:59 | Emergency (ER) | payer OTHER ==
[2019-06-12 10:06] VITALS: BP 120/67; PULSE 84; TEMP 97.6; BMI 41.3
[2019-06-12] MEDS ORDERED: KETOROLAC TROMETHAMINE 60 MG/2 ML VIAL IM ONE (10:12)
[2019-06-12] MEDS ORDERED: KETOROLAC TROMETHAMINE 60 MG/2 ML VIAL ONE (10:15)
--- NOTE | 2019-06-12 10:15 | PDOC ---
History of Present Illness - General Chief Complaint: Pain Stated Complaint: Back Pain Time Seen by Provider: 06/12/19 10:08 History Source: Patient Exam Limitations: No Limitations (back pain X 3 days) - History of Present Illness Pain Location: reports: back Past History - Travel Traveled outside of the country in the last 30 days: No Close contact w/someone who was outside of country & ill: No - Past Medical History Allergies/Adverse Reactions: Allergies Allergy/AdvReac Type Severity Reaction Status Date / Time amoxicillin Allergy Intermediate Hives Verified 06/12/19 10:06 peanut Allergy Intermediate Hives Verified 06/12/19 10:06 Home Medications: Ambulatory Orders Fluticasone/Salmeterol [Advair Hfa 115-21 Mcg Inhaler] 1 inh PO BID 06/12/19 Asthma: Yes Cancer: No Cardiac Disorders: No COPD: No Diabetes: No HTN: No Seizures: No Thyroid Disease: No - Immunization History Immunization Up to Date: Yes - Psycho Social/Smoking Cessation Hx Smoking History: Never smoked Have you smoked in the past 12 months: No Number of Cigarettes Smoked Daily: 0 Cigars Per Day: 0 Hx Alcohol Use: No Drug/Substance Use Hx: No Substance Use Type: None Hx Substance Use Treatment: No Review of Systems - Review of Systems Constitutional: No: Chills, Fever Musculoskeletal: Yes: Back Pain. No: Muscle Pain, Muscle Weakness Neurological: No: Numbness, Paresthesia, Tingling, Weakness, Unsteady Gait, Ataxia, Dizziness *Physical Exam - Vital Signs Last Vital Signs Temp Pulse Resp BP Pulse Ox 97.6 F 84 18 120/67 99 06/12/19 10:03 06/12/19 10:03 06/12/19 10:03 06/12/19 10:03 06/12/19 10:03 - Physical Exam General Appearance: Yes: Nourished Respiratory/Chest: positive: Chest Tender, Lungs Clear, Normal Breath Sounds Cardiovascular: positive: Regular Rhythm, Regular Rate, S1, S2 Musculoskeletal: positive: Muscle Spasm (+ paraspinal tenderness inLS spine, gait is stable, neg SLR b/l). negative: CVA Tenderness (R), CVA Tenderness (L) , Vertebral Tenderness Neurologic: positive: laundry attendant II-XII NML intact, Fully Oriented, Alert, Normal Mood/ Affect, Normal Response, Motor Strength 5/5 Medical Decision Making - Medical Decision Making 23 years old female with no prior medical history presents with atraumatic lower back pain with movements for 3 days. Patient denies urinary symptoms, bladder or bowel incontinence or saddle anesthesia. She is taking Tylenol with little relief of the pain. She denies history of kidney stones. Examination consistent with paraspinal tenderness in the lumbosacral region. Suspect musculoskeletal in origin. There is no focal neurological deficits. UA ordered to check for any infection. Will give Toradol for pain. Patient reassessed UA was within normal limits. Patient was advised to take [id number] ibuprofen or Tylenol for pain. Follow-up with primary care doctor Discharge - Discharge Information Problems reviewed: Yes Clinical Impression/Diagnosis: Back pain Qualifiers: Back pain location: low back pain Chronicity: acute Back pain laterality: unspecified Sciatica presence: without sciatica Qualified Code(s): M54.5 - Low back pain Condition: Stable Disposition: HOME - Admission No - Additional Discharge Information Prescription Drug Monitoring Program (I-STOP) results: I-STOP not reviewed - Follow up/Referral Referrals: Carlene Messina MD [Primary Care Provider] - - Patient Discharge Instructions Patient Printed Discharge Instructions: DI for Low Back Pain Additional Instructions: Your urine test was negative for any acute infection. Urine culture will be sent and if abnormal you will be notified for antibiotics. Your back pain is likely musculoskeletal in origin please do some stretching take ibuprofen or Tylenol [id number] for pain. You may follow-up with your primary care doctor for further evaluation Return to the emergency room if worsening symptoms occurs. - Post Discharge Activity
[2019-06-12] MEDS ORDERED: IBUPROFEN 400 MG TABLET (FP) PO ONE ×2 (10:17→10:19)
[2019-06-12 11:58] LABS: EPI CELLS 2.2 /HPF (0-5/HPF); HYALINE CASTS 0 /lpf (0-8); PH,URINE 5.5 (5.0-8.0); URINE APPEARANCE CLEAR; URINE BACTERIA 63.1 /hpf (NEGATIVE); URINE BILIRUBIN NEGATIVE (NEGATIVE); URINE COLOR YELLOW; URINE GLUCOSE (UA) NEGATIVE (NEGATIVE); URINE KETONE NEGATIVE (NEGATIVE); URINE LEUK ESTERASE TRACE (NEGATIVE); URINE NITRITE NEGATIVE (NEGATIVE); URINE PROTEIN NEGATIVE (NEGATIVE); URINE RBC 1 /hpf (0-4); URINE UROBILINOGEN 0.2 mg/dL (0.2-1.0); URINE WBC 1 /hpf (0-5)
== END 2019-06-12 12:20 | disposition home or self-care (01) ==
LOC: JERFT 09:59
PROC: 3E0233Z Introduction of Anti-inflammatory into Muscle, Percutaneous Approach (ICD-10-PCS; principal; 2019-06-12)
DX: M54.5 Low back pain (principal); Z91.010 Allergy to peanuts; Z88.0 Allergy status to penicillin
CPT/HCPCS: 81003; 84703; 87086; 96372; 99282-25

== ENCOUNTER 2019-12-27 01:00 | Emergency (ER) | payer OTHER ==
[2019-12-27 01:29] VITALS: BMI 40.2
--- NOTE | 2019-12-27 01:37 | PDOC ---
*Physical Exam - Vital Signs Last Vital Signs Temp Pulse Resp BP Pulse Ox 99.8 F H 88 16 132/57 L 98 12/27/19 01:00 12/27/19 01:00 12/27/19 01:00 12/27/19 01:00 12/27/19 01:00 Medical Decision Making - Medical Decision Making 12/27/19 01:37 Patient seen by the advanced practice provider under my supervision. Ancillary testing reviewed as necessary. I agree with plan as outlined by the advanced practice provider. Discharge - Discharge Information Problems reviewed: Yes Clinical Impression/Diagnosis: Insect bite, Lymph node enlargement Condition: Fair - Follow up/Referral Referrals: Carlene Messina MD [Primary Care Provider] - - Patient Discharge Instructions - Post Discharge Activity
--- NOTE | 2019-12-27 02:52 | PDOC ---
History of Present Illness - General Chief Complaint: Pain, Acute Stated Complaint: LUMP/HEAD,19 WEEKS Time Seen by Provider: 12/27/19 01:34 History Source: Patient - History of Present Illness Initial Comments: 12/27/19 03:01 24-year-old 19 weeks female reports that she was bit by an insect on her scalp now with some right side pain proximal to the ear and left side pain. Patient denies ear pain or discharge, throat pain, fever/chills Past History - Medical History Allergies/Adverse Reactions: Allergies Allergy/AdvReac Type Severity Reaction Status Date / Time amoxicillin Allergy Intermediate Hives Verified 12/27/19 01:29 peanut Allergy Intermediate Hives Verified 12/27/19 01:29 Home Medications: Ambulatory Orders Fluticasone/Salmeterol [Advair Hfa 115-21 Mcg Inhaler] 1 inh PO BID 06/12/19 Cephalexin Monohydrate [Keflex -] 250 mg PO Q6H #28 capsule 12/27/19 Asthma: Yes Cancer: No Cardiac Disorders: No COPD: No Diabetes: No HTN: No Seizures: No Thyroid Disease: No - Immunization History Immunization Up to Date: Yes - Psycho-Social/Smoking History Smoking History: Never smoked Have you smoked in the past 12 months: No Number of Cigarettes Smoked Daily: 0 Cigars Per Day: 0 Information on smoking cessation initiated: No - Substance Abuse Hx (Audit-C & DAST Scrn) How often the patient has a drink containing alcohol: Never Score: In Men: 4 or > Positive; In Women: 3 or > Positive: 0 Screen Result (Pos requires Nsg. Audit-10AR): Negative In the last yr the pt used illegal drug/Rx for NonMed reason: No Score: Yes response is considered Positive: 0 Screen Result (Positive result requires Nsg. DAST-10): Negative Review of Systems - Review of Systems Able to Perform ROS?: Yes Is the patient limited Maltese proficient: No Constitutional: No: Symptoms Reported, See HPI, Chills, Diaphoresis, Fever, Loss of Appetite, Malaise, Night Sweats, Weakness, Weight Stable, Unintentional Wgt. Loss, Unexplained wgt Loss, Other Integumentary: Yes: Erythema, Other (insect bites) *Physical Exam - Vital Signs Last Vital Signs Temp Pulse Resp BP Pulse Ox 99.8 F H 88 16 132/57 L 98 12/27/19 01:00 12/27/19 01:00 12/27/19 01:00 12/27/19 01:00 12/27/19 01:00 - Physical Exam General Appearance: Yes: Appropriately Dressed HEENT: positive: Normal ENT Inspection, Other (no jaw swelling, ) Neck: positive: Trachea midline, Supple, Lymphadenopathy (R), Lymphadenopathy (L) Cardiovascular: positive: Regular Rhythm, Regular Rate Integumentary: positive: Normal Color, Dry, Warm Neurologic: positive: Fully Oriented, Alert, Normal Mood/Affect ED Progress Note - Progress Note Progress Note: A: lymph node enlargement; early cellulitis P: cephalexin strict return precautions reviewed with patient. Discharge - Discharge Information Problems reviewed: Yes Clinical Impression/Diagnosis: Lymph node enlargement Insect bite Qualifiers: Encounter type: initial encounter Site of insect bite: head Site of insect bite of head: scalp Qualified Code(s): S00.06XA - Insect bite (nonvenomous) of scalp, initial encounter Condition: Fair Disposition: HOME - Additional Discharge Information Prescriptions: Cephalexin Monohydrate [Keflex -] 250 mg PO Q6H #28 capsule - Follow up/Referral Referrals: Carlene Messina MD [Primary Care Provider] - - Patient Discharge Instructions Patient Printed Discharge Instructions: Cellulitis Additional Instructions: May take Tylenol every 4-6 hours as needed for pain. Take cephalexin as prescribed. Return to the emergency room if you are having worsening swelling trouble swallowing difficulty breathing, fever or any worsening symptoms - Post Discharge Activity Work/Back to School Note: Back to Work
[2019-12-27] MEDS ORDERED: CEPHALEXIN MONOHYDRATE 500 MG CAPSULE (UD) PO ONE (02:53)
[2019-12-27] MEDS ORDERED: CEPHALEXIN MONOHYDRATE 500 MG CAPSULE (UD) ONE (02:55)
[2019-12-27] MEDS ORDERED: ACETAMINOPHEN 325 MG TABLET (FP) PO ONE (03:06)
[2019-12-27] MEDS ORDERED: ACETAMINOPHEN 325 MG TABLET (FP) ONE (03:45)
[2019-12-27 03:48] VITALS: BP 132/60; PULSE 83; TEMP 98.6
== END 2019-12-27 03:49 | disposition home or self-care (01) ==
LOC: JER 01:00
DX: S00.06XA Insect bite (nonvenomous) of scalp, initial encounter (principal)
CPT/HCPCS: 99283-25

== ENCOUNTER 2020-05-20 21:35 | Inpatient (IN) | payer OTHER ==
[2020-05-20] MEDS ORDERED: PROMETHAZINE HCL 25 MG/1 ML VIAL IVPUSH ONE (23:57)
[2020-05-20] MEDS ORDERED: BUTORPHANOL TARTRATE 1 MG/ML VIAL IVPB PRN (23:57)
[2020-05-21] MEDS ORDERED: DINOPROSTONE 10 MG VAGINAL SUPPOSITORY VG ONE
[2020-05-21 01:02] VITALS: BMI 46.8
[2020-05-21 02:00] LABS: BASO % 0.2 % (0-2.0); EOS % 1.3 % (0-4.5); HEMATOCRIT 39.3 % (32.4-45.2); HEMOGLOBIN 12.5 GM/dL (10.7-15.3); LYMPH % 23.6 % (8-40); MCH 27.1 pg (25.7-33.7); MCHC 31.9 g/dl (32.0-36.0); MEAN CELL VOLUME 85.1 fl (80-96); MEAN PLT VOLUME 9.9 fl (7.5-11.1); MONO % 6.6 % (3.8-10.2); NEUT % 68.3 % (42.8-82.8); PLATELET COUNT 227 K/MM3 (134-434); RBC 4.61 M/mm3 (3.60-5.2); RDW 16.8 % (11.6-15.6); WHITE BLOOD COUNT 10.1 K/mm3 (4.0-10.0)
[2020-05-21] MEDS ORDERED: OXYTOCIN 20 UNITS in 0.9% NS 20 UNIT/1,000 ML INFUS.BAG IV ONE ×2 (02:00→08:51)
[2020-05-21 02:18] LABS: POTASSIUM 4.2 mmol/L (3.5-5.1)
[2020-05-21 02:20] LABS: BLOOD UREA NITROGEN 9.5 mg/dL (7-18); CALCIUM 8.8 mg/dL (8.5-10.1)
[2020-05-21 02:23] LABS: INR 1.06 (0.83-1.09); PROTHROMBIN TIME (PATIENT) 12.8 SEC (9.7-13.0)
[2020-05-21 02:24] LABS: CREATININE 0.5 mg/dL (0.55-1.3)
[2020-05-21 02:25] LABS: ACTIVATED PTT 27.5 SECONDS (25.2-36.5)
[2020-05-21] MEDS ORDERED: BUTORPHANOL TARTRATE 2 MG/ML VIAL ONE (03:28)
[2020-05-21] MEDS ORDERED: PROMETHAZINE HCL 25 MG/1 ML VIAL ONE (03:29)
[2020-05-21 03:42] LABS: HIV INTERPRETATION NEGATIVE (NEGATIVE)
[2020-05-21] MEDS: OXYTOCIN 20 UNITS in 0.9% NS 20 UNIT/1,000 ML INFUS.BAG IV SCH (07:25)
[2020-05-21] MEDS ORDERED: BENZOCAINE 20% 57 GM BOTTLE TP PRN (07:55)
[2020-05-21] MEDS ORDERED: BENZOCAINE 28 GM HEMORRHOIDAL OINTMENT TP PRN (07:55)
[2020-05-21] MEDS ORDERED: METHYLERGONOVINE MALEATE 0.2 MG/1 ML AMP IM PRN (07:55)
[2020-05-21] MEDS ORDERED: oxyCODONE HCL 5 MG TABLET PO PRN (07:55)
[2020-05-21] MEDS ORDERED: WITCH HAZEL 50% (TUCKS) 40 PAD/JAR PAD TP PRN (07:55)
[2020-05-21] MEDS ORDERED: BISACODYL 10 MG SUPP.RECT PR PRN (07:55)
[2020-05-21] MEDS: IBUPROFEN 600 MG TABLET (FP) PO PRN (14:04)
[2020-05-21] MEDS: ACETAMINOPHEN 325 MG TABLET (FP) PO PRN (14:04)
[2020-05-22 09:13] LABS: BASO % 0.2 % (0-2.0); HEMATOCRIT 35.1 % (32.4-45.2); LYMPH % 27.6 % (8-40); MCHC 31.4 g/dl (32.0-36.0); MEAN CELL VOLUME 85.9 fl (80-96); MEAN PLT VOLUME 9.5 fl (7.5-11.1); MONO % 7.1 % (3.8-10.2); NEUT % 63.1 % (42.8-82.8); PLATELET COUNT 213 K/MM3 (134-434); RBC 4.08 M/mm3 (3.60-5.2); RDW 17.1 % (11.6-15.6); WHITE BLOOD COUNT 11.2 K/mm3 (4.0-10.0)
[2020-05-23] MEDS: OXYTOCIN 20 UNITS in 0.9% NS 20 UNIT/1,000 ML INFUS.BAG IV SCH (04:34)
[2020-05-23] MEDS: ACETAMINOPHEN 325 MG TABLET (FP) PO PRN ×2 (04:35→14:05)
[2020-05-23] MEDS: IBUPROFEN 600 MG TABLET (FP) PO PRN (04:36)
[2020-05-23] MEDS ORDERED: NIFEdipine E.R. 30 MG TABLET PO SCH (14:15)
[2020-05-23 15:59] VITALS: TEMP 98
[2020-05-23 16:05] VITALS: BP 143/86; PULSE 69
== END 2020-05-23 15:40 | disposition home or self-care (01) | DRG 560 ==
LOC: JDEL 21:35 → JLDR 05-21 → J3W 05-21 09:30
PROVIDERS: ADMIT Obstetrics & Gynecology; ATTEND Obstetrics & Gynecology
PROC: 10E0XZZ Delivery of Products of Conception, External Approach (ICD-10-PCS; principal; 2020-05-21)
PROC: 0W8NXZZ Division of Female Perineum, External Approach (ICD-10-PCS; 2020-05-21)
PROC: 0UQMXZZ Repair Vulva, External Approach (ICD-10-PCS; 2020-05-21)
DX: O71.82 Other specified trauma to perineum and vulva (principal); O13.3 Gestational [pregnancy-induced] hypertension without significant proteinuria, third trimester; Z3A.40 40 weeks gestation of pregnancy; O99.214 Obesity complicating childbirth; Z37.0 Single live birth
CPT/HCPCS: 36415; 59409; 76819-TC; 80048; 85025; 85610; 85730; 86850; 86900; 86901; 87340; 87389; C9803; U0003

== ENCOUNTER 2020-11-24 18:01 | Emergency (ER) | payer OTHER ==
[2020-11-24 18:09] VITALS: BMI 46.8
[2020-11-24 20:12] VITALS: BP 130/84; PULSE 75; TEMP 98.1
== END 2020-11-24 20:27 | disposition home or self-care (01) ==
LOC: JER 18:01
DX: M79.605 Pain in left leg (principal)
CPT/HCPCS: 93971-TC; 99284-25

== ENCOUNTER 2020-12-11 00:38 | Emergency (ER) | payer OTHER ==
[2020-12-11 01:34] VITALS: BP 133/82; PULSE 72; TEMP 98.1; BMI 50.5
== END 2020-12-11 01:56 | disposition home or self-care (01) ==
LOC: JER 00:38
DX: K08.89 Other specified disorders of teeth and supporting structures (principal)
CPT/HCPCS: 99283-25

== ENCOUNTER 2021-07-26 07:53 | Emergency (ER) | payer OTHER ==
[2021-07-26 08:08] VITALS: BP 129/82; PULSE 90; TEMP 97.9; BMI 35.2
[2021-07-26] MEDS ORDERED: ACETAMINOPHEN 325 MG TABLET (FP) PO ONE (08:36)
[2021-07-26] MEDS ORDERED: ACETAMINOPHEN 325 MG TABLET (FP) ONE (08:56)
== END 2021-07-26 13:31 | disposition home or self-care (01) ==
LOC: JER 07:53
DX: R51.9 Headache, unspecified (principal); Z3A.14 14 weeks gestation of pregnancy; V89.2XXA Person injured in unspecified motor-vehicle accident, traffic, initial encounter; Y92.9 Unspecified place or not applicable
CPT/HCPCS: 76801-TC; 99284-25

== ENCOUNTER 2022-01-11 19:40 | Inpatient (IN) | payer OTHER ==
[2022-01-11] MEDS ORDERED: DINOPROSTONE 10 MG VAGINAL SUPPOSITORY VG ONE (20:34)
[2022-01-11] MEDS: DEXTROSE 5%-LACTATED RINGERS 1,000 ML IV SCH (20:40)
[2022-01-11 21:07] VITALS: BMI 47.2
[2022-01-11 21:20] LABS: EPI CELLS 20 /uL (0-25.1); HYALINE CASTS 1 /uL (0-3.1); PH,URINE 6.5 (5.0-8.0); URINE APPEARANCE CLEAR; URINE BACTERIA 556 /uL (0-1359); URINE BILIRUBIN NEGATIVE (NEGATIVE); URINE COLOR YELLOW; URINE GLUCOSE (UA) NEGATIVE (NEGATIVE); URINE KETONE NEGATIVE (NEGATIVE); URINE LEUK ESTERASE TRACE (NEGATIVE); URINE NITRITE NEGATIVE (NEGATIVE); URINE PROTEIN NEGATIVE (NEGATIVE); URINE RBC 4 /uL (0-23.9); URINE UROBILINOGEN 0.2 mg/dL (0.2-1.0); URINE WBC 27 /uL (0-25.8)
[2022-01-12] MEDS ORDERED: PROMETHAZINE HCL 25 MG/1 ML VIAL IVPB ONE (01:20)
[2022-01-12] MEDS ORDERED: BUTORPHANOL TARTRATE 1 MG/ML VIAL IVPB ONE (01:20)
[2022-01-12] MEDS ORDERED: BUTORPHANOL TARTRATE 2 MG/ML VIAL ONE (01:29)
[2022-01-12] MEDS ORDERED: PROMETHAZINE HCL 25 MG/1 ML VIAL ONE (01:29)
[2022-01-12] MEDS: DEXTROSE 5%-LACTATED RINGERS 1,000 ML IV SCH (05:40)
[2022-01-12] MEDS ORDERED: VANCOMYCIN 1 GRAM (PRE-DOCKED) 1,000 MG/250 ML BAG IVPB SCH (10:00)
[2022-01-12] MEDS ORDERED: VANCOMYCIN 1 GM in D5W (PRE-DOCKED) 1,000 MG/250 ML IVPB SCH (10:00)
[2022-01-12] MEDS ORDERED: OXYTOCIN 20 UNITS in 0.9% NS 20 UNIT/1,000 ML INFUS.BAG IV ONE ×2 (12:29→15:50)
[2022-01-12] MEDS ORDERED: LIDOCAINE HCL 1% PRESERVATIVE FREE - 30ML VIAL ONE (12:30)
[2022-01-12] MEDS ORDERED: OXYTOCIN 20 UNITS in 0.9% NS 20 UNIT/1,000 ML INFUS.BAG IV SCH (15:00)
[2022-01-12] MEDS ORDERED: ACETAMINOPHEN 325 MG TABLET (FP) PO PRN (15:00)
[2022-01-12] MEDS ORDERED: BENZOCAINE 20% 57 GM BOTTLE TP PRN (15:00)
[2022-01-12] MEDS ORDERED: WITCH HAZEL 50% (TUCKS) 40 PAD/JAR PAD TP PRN (15:00)
[2022-01-12] MEDS ORDERED: BENZOCAINE 28 GM HEMORRHOIDAL OINTMENT TP PRN (15:00)
[2022-01-12 15:06] LABS: CORD BASE EXCESS -2.4 mmol/L (0-2); CORD HCO3 22.3 mmHg (20-29); CORD PCO2 38.3 mmHg (30-78); CORD pH 7.383 (7.14-7.44)
[2022-01-12] MEDS ORDERED: IBUPROFEN 600 MG TABLET (FP) PO ONE (15:50)
[2022-01-12] MEDS: IBUPROFEN 600 MG TABLET (FP) PO PRN (16:00)
[2022-01-12] MEDS: FERROUS SO4 325 MG TABLET (FP) PO SCH (17:06)
[2022-01-12] MEDS: VANCOMYCIN/WATER FOR INJ (PEG) 1,000 MG/200 ML BAG IVPB SCH (21:27)
[2022-01-13 08:17] LABS: BASO % 0.2 % (0-2.0); EOS % 3.6 % (0-4.5); HEMATOCRIT 27.7 % (32.4-45.2); HEMOGLOBIN 9.2 GM/dL (10.7-15.3); LYMPH % 27.3 % (8-40); MCHC 33.1 g/dl (32.0-36.0); MEAN CELL VOLUME 81.6 fl (80-96); MEAN PLT VOLUME 9.3 fl (7.5-11.1); MONO % 9.4 % (3.8-10.2); NEUT % 59.5 % (42.8-82.8); PLATELET COUNT 193 10^3/uL (134-434); WHITE BLOOD COUNT 10.8 K/mm3 (4.0-10.0)
[2022-01-13] MEDS: FERROUS SO4 325 MG TABLET (FP) PO SCH ×2 (08:59→17:04)
[2022-01-13] MEDS: PRENATAL VITAMINS W/ FOLIC ACID TABLET (FP) PO SCH (08:59)
[2022-01-13] MEDS: VANCOMYCIN/WATER FOR INJ (PEG) 1,000 MG/200 ML BAG IVPB SCH (11:10)
[2022-01-13 18:05] VITALS: RESP 18
[2022-01-13] MEDS ORDERED: SENNOSIDES/DOCUSATE COMBO (SENNA PLUS) TABLET (UD) PO PRN (22:00)
[2022-01-13 22:26] VITALS: TEMP 98.5
[2022-01-14] MEDS: DEXTROSE 5%-LACTATED RINGERS 1,000 ML IV SCH ×2 (04:31→04:35)
[2022-01-14] MEDS: IBUPROFEN 600 MG TABLET (FP) PO PRN (04:33)
[2022-01-14] MEDS: MISOPROSTOL 100 MCG TABLET PV SCH ×3 (04:35→04:37)
[2022-01-14 08:58] VITALS: BP 115/75; PULSE 80
[2022-01-14] MEDS: FERROUS SO4 325 MG TABLET (FP) PO SCH (09:51)
[2022-01-14] MEDS: PRENATAL VITAMINS W/ FOLIC ACID TABLET (FP) PO SCH (09:51)
== END 2022-01-14 11:50 | disposition home or self-care (01) | DRG 560 ==
LOC: JLDR 19:40 → J3W 01-12 16:15
PROVIDERS: ADMIT Obstetrics & Gynecology Maternal & Fetal Medicine; ATTEND Obstetrics & Gynecology Maternal & Fetal Medicine
PROC: 3E0P7VZ Introduction of Hormone into Female Reproductive, Via Natural or Artificial Opening (ICD-10-PCS; 2022-01-11)
PROC: 10E0XZZ Delivery of Products of Conception, External Approach (ICD-10-PCS; principal; 2022-01-12)
DX: O13.4 Gestational [pregnancy-induced] hypertension without significant proteinuria, complicating childbirth (principal); O99.213 Obesity complicating pregnancy, third trimester; Z3A.38 38 weeks gestation of pregnancy; Z37.0 Single live birth
CPT/HCPCS: 36415; 36600; 80048; 81003; 82803; 85025; 85610; 85730; 86780; 86850; 86900; 86901; 88307-TC; C9803-CS; U0003; U0005

== ENCOUNTER 2024-02-18 11:16 | Emergency (ER) | payer OTHER ==
[2024-02-18 11:26] VITALS: BP 116/74; PULSE 95; RESP 16; TEMP 98.6; BMI 43.7
[2024-02-18] MEDS ORDERED: ACETAMINOPHEN INJECTION 100 ML ONE (11:50)
[2024-02-18] MEDS ORDERED: FAMOTIDINE 20 MG/50 ML IVPB 20 MG/50 ML MG IVPB ONE (11:50)
[2024-02-18] MEDS ORDERED: METOCLOPRAMIDE HCL INJECTION 10 MG/2 ML VIAL ONE (11:50)
[2024-02-18] MEDS: LACTATED RINGERS SOLUTION 1,000 ML/1,000 ML INFUS.BAG IV ONE (12:10)
[2024-02-18] MEDS: METOCLOPRAMIDE HCL INJECTION 10 MG/2 ML VIAL IVPB ONE (12:10)
[2024-02-18] MEDS: FAMOTIDINE 20 MG/50 ML IVPB 20 MG/50 ML MG IVPB ONE (12:10)
[2024-02-18 12:14] LABS: HEMATOCRIT 39.6 % (32.4-45.2); HEMOGLOBIN 12.5 GM/dL (10.7-15.3); MCH 25.8 pg (25.7-33.7); MCHC 31.7 g/dl (32.0-36.0); MEAN CELL VOLUME 81.4 fl (80-96); MEAN PLT VOLUME 8.9 fl (7.5-11.1); PLATELET COUNT 253 10^3/uL (134-434); RBC 4.86 M/mm3 (3.60-5.2); RDW 15.3 % (11.6-15.6); WHITE BLOOD COUNT 8.4 K/mm3 (4.0-10.0)
[2024-02-18 12:20] LABS: URINE APPEARANCE CLEAR; URINE BILIRUBIN NEGATIVE (NEGATIVE); URINE COLOR YELLOW; URINE GLUCOSE (UA) NEGATIVE (NEGATIVE); URINE KETONE TRACE (NEGATIVE); URINE LEUK ESTERASE NEGATIVE (NEGATIVE); URINE NITRITE NEGATIVE (NEGATIVE); URINE PROTEIN TRACE (NEGATIVE)
[2024-02-18 12:22] LABS: HCG,QUALITATIVE URINE Negative
[2024-02-18 12:31] LABS: POTASSIUM 3.9 mmol/L (3.5-5.1)
[2024-02-18 12:33] LABS: CALCIUM 9.2 mg/dL (8.5-10.1)
[2024-02-18 12:35] LABS: ALBUMIN 3.7 g/dl (3.4-5.0); BLOOD UREA NITROGEN 11.1 mg/dL (7-18)
[2024-02-18 12:37] LABS: CREATININE 0.7 mg/dL (0.55-1.3)
[2024-02-18 12:38] LABS: TOT PROT 7.5 g/dl (6.4-8.2)
[2024-02-18 12:40] LABS: BILIRUBIN,TOTAL 1.5 mg/dL (0.2-1)
[2024-02-18] MEDS: ACETAMINOPHEN 1000 MG/100 ML BAG IVPB ONE (12:42)
[2024-02-18 12:52] LABS: ANISOCYTOSIS 0; HELMET CELLS 0; HOWELL-JOLLY BODIES 0; MACROCYTOSIS 0; OVALOCYTE 0; ROULEAU 0; SICKELED CELLS 0; TARGET CELLS 0; TEAR DROP CELLS 0; TOXIC GRANULATION 0
[2024-02-18 13:28] LABS: HIV INTERPRETATION NEGATIVE (NEGATIVE)
== END 2024-02-18 14:18 | disposition home or self-care (01) ==
LOC: JER 11:16
PROC: 3E033GC Introduction of Other Therapeutic Substance into Peripheral Vein, Percutaneous Approach (ICD-10-PCS; principal; 2024-02-18)
PROC: 3E033NZ Introduction of Analgesics, Hypnotics, Sedatives into Peripheral Vein, Percutaneous Approach (ICD-10-PCS; 2024-02-18)
PROC: 3E033GC Introduction of Other Therapeutic Substance into Peripheral Vein, Percutaneous Approach (ICD-10-PCS; 2024-02-18)
DX: K52.9 Noninfective gastroenteritis and colitis, unspecified (principal); R11.2 Nausea with vomiting, unspecified; R51.9 Headache, unspecified
CPT/HCPCS: 36415; 80053; 81003; 83690; 84703; 85025; 86803; 87086; 87389; 99284-25; J0131